=== PATIENT | female | born 1955 | race Caucasian/White ===

== ENCOUNTER 2017-10-24 15:13 | Observation (INO) | payer BC ==
[~2017-10-24] VITALS: Ht 157.5 cm; Wt 68.1 kg
[~2017-10-24 15:13] MED LIST: ADVAIR 250/501 DISK IH; ATORVASTATIN CA40 MG PO; CIPRO500 MG PO; ESCITALOPRAM OX20 MG PO; FENOFIBRATE145 M1 PO; FLONASE16 G1 BOTH NARES; HYDROCHLOROTHIA25 MG PO; HYDROMET SYRUP480 ML PO; LEVOFLOXACIN750 MG PO; LOSARTAN POTAS100 MG PO; METFORMIN HCL500 MG PO; NAPROSYN500 MG PO; NAPROXEN500 M2 PO; NAPROXEN500 MG PO; PERCOCET 5/31 TABLET PO; PROAIR RESPICL90 MCG IH; SPIRIVA1 INHALATI IH; VENTOLIN HFA18 GM IH; ZOCOR10 MG PO; ZOFRAN ODT4 MG PO
[2017-10-24 16:00] LABS: HEMATOCRIT 35.5 % (36.0-46.0); HEMOGLOBIN 12.3 G/DL (11.9-15.5); MCH 29.9 PG (29.0-34.0); MCHC 34.6 G/DL (30.0-36.0); MCV 86.2 FL (83-99); PLATELET COUNT 345 K/uL (156-360); RBC DIS.WIDTH-CV 12.5 % (11.8-14.6); RBC DIS.WIDTH-SD 39.4 % (39-53); RED BLOOD COUNT 4.12 M/uL (3.80-5.20); WHITE BLOOD COUNT 5.7 K/uL (4.1-10.2)
[2017-10-24 16:08] LABS: ALBUMIN 4.2 g/dL (3.2-4.8); CHLORIDE 103 mEq/L (99-109); SODIUM 138 mEq/L (136-147)
[2017-10-24 16:11] LABS: GLUCOSE 105 mg/dL (70-99); TOTAL PROTEIN 7.6 g/dL (6.4-8.3)
[2017-10-24 16:13] LABS: TOTAL BILIRUBIN 0.4 mg/dL (0.0-1.0)
[2017-10-24 16:14] LABS: ALKALINE PHOSPHATASE 39 IU/L (3-129); CREATININE 0.8 mg/dL (0.6-1.3); GFR ESTIMATE (CALCULATED) > 59 mL/min/
[2017-10-24 16:15] LABS: UREA NITROGEN (BUN) 19 mg/dL (9-23)
[2017-10-24 16:16] LABS: AST (GOT) 18 IU/L (2-34)
[2017-10-24 16:17] LABS: ALT (GPT) 17 IU/L (3-49)
[2017-10-24 16:18] LABS: LIPASE 36 U/L (1.0-51.0)
[2017-10-24 16:20] LABS: TROP-I INTERPRETATION NEGATIVE; TROPONIN-I < 0.01 ng/mL (0.0-0.30)
[2017-10-24] MEDS ORDERED: WOMEN'S MULTI200 MCG PO (17:28)
[2017-10-24] MEDS ORDERED: HYDROCHLOROTHIA25 MG PO (17:29)
[2017-10-24] MEDS ORDERED: PENNSAID2 GM TP (17:30)
[2017-10-24] MEDS ORDERED: MELOXICAM15 MG PO (17:38)
[2017-10-24] MEDS ORDERED: MELATONIN1 MG PO (17:39)
[2017-10-24] MEDS ORDERED: CLARITIN,ALAVAR10 MG PO (17:39)
[2017-10-24] MEDS ORDERED: TYLENOL REGULA325 MG PO (17:40)
[2017-10-24 18:19] VITALS: BP 142/73
[2017-10-24 20:00] VITALS: BP 115/58
[2017-10-24 22:21] LABS: TROP-I INTERPRETATION NEGATIVE; TROPONIN-I < 0.01 ng/mL (0.0-0.30)
[2017-10-25] VITALS: BP 143/68
[2017-10-25 04:00] VITALS: BP 122/65
[2017-10-25 04:38] LABS: HEMATOCRIT 36.5 % (36.0-46.0); HEMOGLOBIN 12.4 G/DL (11.9-15.5); MCH 29.5 PG (29.0-34.0); MCV 86.9 FL (83-99); PLATELET COUNT 336 K/uL (156-360); RBC DIS.WIDTH-CV 12.6 % (11.8-14.6); RBC DIS.WIDTH-SD 39.8 % (39-53); WHITE BLOOD COUNT 5.1 K/uL (4.1-10.2)
[2017-10-25 04:50] LABS: CHLORIDE 105 mEq/L (99-109); POTASSIUM 3.5 mEq/L (3.7-5.4); SODIUM 139 mEq/L (136-147)
[2017-10-25 04:52] LABS: GLUCOSE 137 mg/dL (70-99)
[2017-10-25 04:56] LABS: GFR ESTIMATE (CALCULATED) > 59 mL/min/; UREA NITROGEN (BUN) 19 mg/dL (9-23)
[2017-10-25 04:59] LABS: TROP-I INTERPRETATION NEGATIVE; TROPONIN-I < 0.01 ng/mL (0.0-0.30)
[2017-10-25 07:58] VITALS: BP 146/70
[2017-10-25] MEDS ORDERED: PLAVIX75 MG PO (09:29)
== END 2017-10-25 10:11 | disposition home or self-care (01) ==
LOC: EME → EDBD 15:13 → EDOF 17:23 → 4SOUTH 17:23 → ENRESERV 17:25 → 4SOUTH 18:00 → ENPENDDIS 10-25 09:33 → 4SOUTH 10-25 10:11
PROVIDERS: Internal Medicine; Physician Assistant
DX: R07.89 Other chest pain (principal); R94.31 Abnormal electrocardiogram [ECG] [EKG]; I10 Essential (primary) hypertension; N20.0 Calculus of kidney; E11.9 Type 2 diabetes mellitus without complications; E78.5 Hyperlipidemia, unspecified; J45.909 Unspecified asthma, uncomplicated; F32.9 Major depressive disorder, single episode, unspecified; Z87.442 Personal history of urinary calculi; Z79.84 Long term (current) use of oral hypoglycemic drugs; Z82.5 Family history of asthma and other chronic lower respiratory diseases; Z82.0 Family history of epilepsy and other diseases of the nervous system; Z88.1 Allergy status to other antibiotic agents; Z88.6 Allergy status to analgesic agent; Z88.8 Allergy status to other drugs, medicaments and biological substances
CPT/HCPCS: 71046; 80048; 80053; 82948; 83690; 84484; 85027; 93005; 99281; 99285; G0378; J1650